=== PATIENT | female | born 1975 | race Caucasian/White ===

== ENCOUNTER 2018-05-14 19:35 | Emergency (ER) | payer MEDICAID | END 2018-05-14 22:30 | disposition home or self-care (01) | LOC: FTE 22:30 | DX: J40 Bronchitis, not specified as acute or chronic (principal) | CPT/HCPCS: 71045; 99283-25 ==

== ENCOUNTER 2018-10-18 13:57 | Emergency (ER) | payer MEDICAID ==
[2018-10-18 16:57] LABS: URINE BLOOD (Dip) POC Negative (NEGATIVE); URINE GLUCOSE (Dip) POC Negative (NEGATIVE); URINE KETONES (Dip) POC Negative (NEGATIVE); URINE LEUKOCYTE EST (Dip) POC Negative (NEGATIVE); URINE NITRITE (Dip) POC Negative (NEGATIVE); URINE TOTAL PROTEIN POC Negative (NEGATIVE)
[2018-10-18 16:57] LABS: URINE PH (Dip) POC 6.5 (5.0-8.5)
[2018-10-18] MEDS: IPRATROPIUM (NEB) 0.5 MG/2.5 ML AMP HHN (17:40)
[2018-10-18] MEDS: ALBUTEROL 0.083% (NEB) 2.5 MG/3 ML AMP HHN (17:40)
== END 2018-10-18 18:05 | disposition home or self-care (01) ==
LOC: FTE 13:57
DX: J45.901 Unspecified asthma with (acute) exacerbation (principal); R30.0 Dysuria; R10.2 Pelvic and perineal pain; R06.02 Shortness of breath
CPT/HCPCS: 81003; 81025; 87086; 94664; 99283-25

== ENCOUNTER 2019-06-05 23:42 | Emergency (ER) | payer MEDICAID ==
[2019-06-06] MEDS: ALBUTEROL 0.083% (NEB) 2.5 MG/3 ML AMP HHN (00:26)
[2019-06-06] MEDS: IPRATROPIUM (NEB) 0.5 MG/2.5 ML AMP HHN (00:26)
[2019-06-06] MEDS: DEXAMETHASONE 10 MG/ML 1 ML INJ IM (00:31)
== END 2019-06-06 01:38 | disposition home or self-care (01) ==
LOC: FTE 23:42
DX: J45.901 Unspecified asthma with (acute) exacerbation (principal)
CPT/HCPCS: 94664; 96372; 99284-25